=== PATIENT | male | born 2000 ===

== ENCOUNTER 2019-03-19 09:18 | Emergency (ER) | payer OTHER ==
--- NOTE | 2019-03-19 09:34 | UC ---
Abdominal Pain Male HPI - HPI Summary HPI Summary: 18 yo male presents with fever, headache, body aches, and 2 episodes of loose stools since last night. He tells me that he landed last night into [place] after a 19 hour flight from [facility]. He is undergoing a 5 week program at the [employer] at [place]. He has not taken anything OTC for his symptoms. He has had no sick contacts that he knows of. He is eating and drinking well. Denies sinus symptoms, sore throat, SOB, chest pain, neck pain, vomiting, nausea, dysuria. - History of Current Complaint Stated Complaint: DIARRHEA HEADACHE ABD PAIN Time Seen by Provider: 03/19/19 09:33 Hx Obtained From: Patient Onset/Duration: Sudden Onset Severity Initially: Mild Severity Currently: Mild Pain Intensity: 3 Pain Scale Used: 0-10 Numeric - Allergies/Home Medications Allergies/Adverse Reactions: Allergies Allergy/AdvReac Type Severity Reaction Status Date / Time No Known Allergies Allergy Verified 03/19/19 09:39 Home Medications: Home Medications NK [No Home Medications Reported] 03/19/19 [History Confirmed 03/19/19] PMH/Surg Hx/FS Hx/Imm Hx - Additional Past Medical History Additional PMH: None - Surgical History Surgical History: None - Family History Known Family History: Positive: None - Social History Occupation: Student Lives: With Family Alcohol Use: Occasionally Substance Use Type: None Smoking Status (MU): Never Smoked Tobacco Review of Systems All Other Systems Reviewed And Are Negative: Yes Constitutional: Positive: Fever, Other - Body aches Skin: Positive: Negative Eyes: Positive: Negative ENT: Positive: Negative Respiratory: Positive: Negative Cardiovascular: Positive: Negative Gastrointestinal: Positive: Diarrhea Genitourinary: Positive: Negative Neurovascular: Positive: Negative Neurological: Positive: Headache Psychological: Positive: Negative Physical Exam - Summary Physical Exam Summary: GENERAL: NAD. WDWN. No pain distress. SKIN: No rashes, sores, lesions, or open wounds. HEENT: Head: AT/NC Eyes: EOM intact. Conjunctiva clear without inflammation or discharge. Ears: Hearing grossly normal. TMs intact, no bulging, erythema, or edema. Nose: Nasal mucosa pink and moist. NTTP maxillary and frontal sinus. Throat: Posterior oropharynx with mild erythema. No exudates or tonsillar enlargement. Uvula midline. NECK: Supple. Nontender. No lymphadenopathy. FROM. CHEST: CTAB. No r/r/w. No accessory muscle use. Breathing comfortably and in no distress. CV: RRR. Without m/r/g. Pulses intact. Cap refill <2seconds ABDOMEN: Soft. NTTP. No distention or guarding. No CVA tenderness. Bowel sounds present NEURO: Alert. PSYCH: Age appropriate behavior. Triage Information Reviewed: Yes Vital Signs: Vital Signs: Temp Pulse Resp BP Pulse Ox 101.1 F 98 18 123/82 100 03/19/19 09:40 03/19/19 09:40 03/19/19 09:40 03/19/19 09:40 03/19/19 09:40 Laboratory Tests 03/19/19 03/19/19 10:26 10:42 POC Urine Color Yellow POC Urine Clarity Clear POC Urine pH 7.5 POC Ur Specif Leon 1.015 POC Urine Protein Trace A POC Ur Glucose (UA) Negative POC Urine Ketones Trace A POC Urine Blood Negative POC Urine Nitrite Negative POC Urine Bilirubin Negative POC Urine Urobilinogen 0.2 POC U Leukocyte Esteras Negative Group A Strep Rapid Negative Vital Signs Reviewed: Yes Abd Pain Male Course/Dx - Course Course Of Treatment: CXR: IMPRESSION: NO ACTIVE CARDIOPULMONARY DISEASE. UA negative. POC strep negative. In the clinic pt was given tylenol and toradol IM for his symptoms. His temperature reduced to 100.4F and he reported feeling a bit better overall. He is well appearing and exam is WNL. I suspect a viral illness at this time. I discussed obtaining blood work with the pt, but he states that he prefers not to at this time because his ride here wants to leave - thus declined bloodwork. Advised to rest and take tylenol/ibuprofen as directed for fever and discomfort. F/u with [facility] if symptoms do not improve/resolve in 3-5 days - Differential Dx/Clinical Impression Provider Diagnosis: Fever, Headache Discharge - Sign-Out/Discharge Documenting (check all that apply): Patient Departure All imaging exams completed and their final reports reviewed: Yes - Discharge Plan Condition: Stable Disposition: HOME Patient Education Materials: Viral Syndrome (ED) Forms: *School Release Referrals: No Primary Care Phys,NOPCP [Primary Care Provider] - Additional Instructions: If you develop a fever, shortness of breath, chest pain, new or worsening symptoms - please call your PCP or go to the ED immediately. Your work up and exam were normal today. I suspect you may have a viral illness that should improve with rest, fluids, and tylenol/ibuprofen for discomfort and fever within 3-5 days. - Billing Disposition and Condition Condition: STABLE Disposition: Home - Attestation Statements Provider Attestation: Per institutional requirements, I have reviewed the chart, however, I was not consulted specifically or made aware of this patient by the midlevel provider. I did not personally evaluate, interact with , or disposition this patient.
[2019-03-19 09:55] VITALS: BP 123/82
[2019-03-19] MEDS ORDERED: Ketorolac INJ* 60 MG/2 ML VIAL IM ONE (09:59)
[2019-03-19] MEDS ORDERED: Acetaminophen TAB* 325 MG PO ONE (09:59)
== END 2019-03-19 10:51 | disposition home or self-care (01) ==
LOC: UCEAST 09:18
DX: R50.9 Fever, unspecified (principal); R51 Headache
CPT/HCPCS: 71046; 81003; 87651; 99201; A9270-GY; G0463; J1885

== ENCOUNTER 2019-03-22 10:34 | Emergency (ER) | payer OTHER ==
[2019-03-22 10:46] VITALS: BP 120/68
--- NOTE | 2019-03-22 12:26 | UC ---
Abdominal Pain Male HPI - HPI Summary HPI Summary: Mr. Sims arrived here from [facility] on Tuesday. On Tuesday he began to experience some epigastric pain and developed a fever on Tuesday. That has subsequently disappeared but the pain has continued and he has developed diarrhea in the last 2 days Tuesday and today is . He describes the diarrhea as watery. He is not nauseated. He has no appetite though but has eaten without any difficulty. - History of Current Complaint Chief Complaint: UCAbdominalPain Stated Complaint: FEVER Time Seen by Provider: 03/22/19 11:14 Hx Obtained From: Patient Onset/Duration: Gradual Onset Timing: Constant Severity Initially: Moderate Severity Currently: Moderate Pain Intensity: 8 Location: Epigastric Radiates: No Character: Aching Aggravating Factor(s): Nothing Alleviating Factor(s): Nothing Associated Signs And Symptoms: Positive: Diarrhea - Allergies/Home Medications Allergies/Adverse Reactions: Allergies Allergy/AdvReac Type Severity Reaction Status Date / Time No Known Allergies Allergy Verified 03/22/19 10:46 PMH/Surg Hx/FS Hx/Imm Hx Previously Healthy: Yes - Surgical History Surgical History: None - Family History Known Family History: Positive: None - Social History Alcohol Use: None Substance Use Type: None Smoking Status (MU): Never Smoked Tobacco Review of Systems All Other Systems Reviewed And Are Negative: Yes Gastrointestinal: Positive: Abdominal Pain, Diarrhea Physical Exam - Summary Physical Exam Summary: He is nontoxic in appearance with stable vital signs. Triage Information Reviewed: Yes Appearance: Well-Appearing Vital Signs: Initial Vital Signs Temp 98.8 F 03/22/19 10:42 Pulse 97 03/22/19 10:42 Resp 17 03/22/19 10:42 BP 120/68 03/22/19 10:42 Pulse Ox 100 03/22/19 10:42 Vital Signs Reviewed: Yes ENT: Positive: Normal ENT inspection Respiratory Exam: Normal Cardiovascular Exam: Normal Abdomen Description: Positive: Other: - He has mild tenderness in the epigastrium. King sign is negative. He has mild to moderate tenderness in the right lower quadrant. Bowel Sounds: Positive: Present Psychological Exam: Normal Diagnostics - Radiology Appendix U/S Radiology Interpretation Completed By: Radiologist Summary of Radiographic Findings: No acute process Abd Pain Male Course/Dx - Course Course Of Treatment: Mr. Bingham had an unusual story but tenderness at the right lower quadrant therefore I obtained an ultrasound of the appendix. The appendix was not visualized unfortunately and therefore the test is equivocal. We do not have capability of doing lab work here in the emergency department and getting it back in a timely fashion. After ultrasound I reexamined him and he continued to be tender in the right lower quadrant as well as in the epigastrium. I was significantly Li concerned this still could represent appendicitis and I recommended CT scan to him or transfer to the emergency department for further evaluation. I also agreed that we could allow him to go home at this point and follow-up if he worsened treating him symptomatically for the time being. He spoke with his parents in [facility] and decided he did not want to get a CT scan at this time. He agrees to follow up if he is worsening in any way or not improving. - Differential Dx/Clinical Impression Provider Diagnosis: Abdominal pain Discharge - Sign-Out/Discharge Documenting (check all that apply): Patient Departure All imaging exams completed and their final reports reviewed: Yes - Discharge Plan Condition: Stable Disposition: HOME Patient Education Materials: Acute Abdominal Pain (ED) Referrals: No Primary Care Phys,NOPCP [Primary Care Provider] - Additional Instructions: Your exam is concerning for the possibility of appendicitis. You have chosen not to get a CT scan at this time, please be aware that if he changes her mind at any time you can return. If there are worsening I would recommend going immediately to the emergency department where they can do better testing. - Billing Disposition and Condition Condition: STABLE Disposition: Home
== END 2019-03-22 12:48 | disposition home or self-care (01) ==
LOC: UCEAST 10:34
DX: R10.31 Right lower quadrant pain (principal)
CPT/HCPCS: 76705; 99212; G0463